=== PATIENT | male | born 1990 | race Asian ===

== ENCOUNTER 2021-04-05 14:23 | Emergency (ER) | payer MEDICAID ==
[~2021-04-05] VITALS: Ht 175.3 cm; Wt 77.0 kg
[2021-04-05] MEDS ORDERED: TETRACAINE 0.5% OPHTH DROPS 4ML LEFTEYE ONE (19:30)
[2021-04-05] MEDS ORDERED: CYCLOPENTOLATE HCL 1% OPHTH DROPS 2ML LEFTEYE ONE (19:30)
[2021-04-05] MEDS ORDERED: FLUORESCEIN SODIUM 1MG/STRIP LEFTEYE ONE (19:30)
[2021-04-05] MEDS ORDERED: HOMATROPINE HBR 5% OPHTH 5ML LEFTEYE ONE (19:45)
[2021-04-05 20:25] VITALS: BP 142/47
== END 2021-04-05 20:25 | disposition home or self-care (01) ==
LOC: ER 14:23
DX: H20.9 Unspecified iridocyclitis (principal)
CPT/HCPCS: 99284